=== PATIENT | male | born 1985 | race Caucasian/White ===

== ENCOUNTER 2019-09-12 17:25 | Inpatient (IN) | payer SELFPAY ==
--- OUTSIDE RECORDS SUMMARY | 2019-09-12 17:28 | XMS REPORT ---
:1985 Author Organization [facility] t Address [address] [place] [address] Care Team Providers Name Role Phone Unavailable Unavailable Unavailable Problems Condition Condition Condition Status Onset Resolution Last Treatin g Comments Name Details Category Date Date Treatment Clinician Date Loss of Loss of Problem Active libido libido Depression Depression Problem Active with with anxiety anxiety Body mass Body mass Problem Active index (BMI) index (BMI) of of 33.0-33.9 33.0-33.9 in adult in adult Non Non Diagnosis Active compliance compliance w w medication medication regimen regimen Localized Localized Problem Active pain of hip pain of hip joint joint Tobacco Tobacco Diagnosis Active abuse abuse counseling counseling Allergies, Adverse Reactions, Alerts This patient has no known allergies or adverse reactions. Medications Ordered Filled Start Stop Current Ordering Indication Dosage Frequency Signature Comments Components Medication Medication Date Date Medication? Clinician (SIG) Name Name Venlafaxine Venlafaxine 2018- Yes Theron 1 tabl et HCl HCl - Krunal with food 00:00: 00 Claritin-D Claritin-D Yes Theron 1 tablet 12 Hour 12 Hour Krunal as needed Duexis Duexis Yes Theron 1 tablet Krunal Encounters Start End Encounter Admission Attending Care Care Encounter Date/Time Date/Time Type Type Clinicians Facility Department ID 2018-09-08 2018-09-08 Outpatient [facility] 2 [id number] 08:15:00 08:15:00 [facility] Family Medicine Medicine
--- OUTSIDE RECORDS SUMMARY | 2019-09-12 17:28 | XMS REPORT ---
:1985 Author Organization [employer] Care Team Providers Name Role Phone Theron Hector Provider Role Unavailable Allergies, Adverse Reactions, Alerts Substance Reaction Event Type N.K.D.A. Info Not Available Non Drug Allergy Problems Problem Type Condition Code Onset Dates Condition Statu s Assessment Loss of libido R68.82 Active Assessment Depression with anxiety F41.8 Acti ve Assessment Body mass index (BMI) of 33.0-33.9 Z68.33 Active in adult Assessment Non compliance w medication regimen Z91.14 Active Problem Depression with anxiety F41.8 Acti ve Problem Localized pain of hip joint M25.559 Active Problem Tobacco abuse counseling Z71.6 Act maria t Assessment Tobacco abuse counseling Z71.6 Act maria t Problem Body mass index (BMI) of 33.0-33.9 Z68.33 Active in adult Problem Loss of libido R68.82 Active Medications Medication Code Code Instructions Start End Status Dosage System Date Date Venlafaxine HCl [facility] 63318903144 50 MG Orally November 08, Active 1 tablet Once a day 2017 with food Claritin-D 12 [facility] 50921261391 5-120 MG Orally Active 1 tablet Hour every 12 hrs as needed Duexis [facility] 86895662707 800-26.6 MG Active 1 tablet Orally Three times a day Results No Known Results Summary Purpose eClinicalWorks Submission
[2019-09-12 18:05] LABS: Basophils % 0.6 % (0-1.3); Hematocrit 44.7 % (39.6-49.0); Lymphocytes % 21.7 % (15.3-44.8); MPV 8.7 fL (7.6-11.3); RBC Red Blood Cell Count 4.87 M/uL (4.33-5.43)
[2019-09-12 18:11] LABS: Urine Blood NEGATIVE (NEG); Urine Glucose NEGATIVE (NEG); Urine Protein NEGATIVE (NEG); Urine Specific Gravity >1.030 (1.005-1.030)
[2019-09-12 18:24] LABS: ALT/SGPT 51 U/L (12-78); AST/SGOT 18 U/L (15-37); Alkaline Phosphatase 134 U/L (45-117); BUN Blood Urea Nitrogen 14 mg/dL (7-18); Bicarbonate 27 mmol/L (21-32); Bilirubin Direct < 0.1 mg/dL (0-0.2); Bilirubin Total 0.2 mg/dL (0.2-1.0); Glucose Level 90 mg/dL (74-106); Protein, Total 7.9 g/dL (6.4-8.2); Sodium Level 140 mmol/L (136-145)
--- NOTE | 2019-09-12 18:36 | RAD REPORT ---
EXAM DESCRIPTION: CT - Stone Protocol - 09/12/2019 6:12 pm CLINICAL HISTORY: Abdominal pain./right flank pain COMPARISON: None. TECHNIQUE: Computed axial tomography of the abdomen pelvis was obtained without oral or IV contrast. Lack of IV and oral contrast limits evaluation of solid organs, bowel, and vessels. Coronal reformat greg images were obtained and reviewed. All CT scans are performed using dose optimization technique as appropriate and may include automated exposure control or mA/KV adjustment according to patient size. FINDINGS: A renal calculus is not seen. An ureteral calculus is not noted. A bladder calculus is not present. The liver, spleen, pancreas and adrenals appear grossly normal Moderate stranding adjacent to the ascending colon. A small diverticulum is seen. An extraluminal air bubble is noted. No abscess IMPRESSION: Moderate diverticulitis ascending colon. A micro perforation is present.
[2019-09-12] MEDS ORDERED: CIPROFLOXACIN 400mg IV 400 MG/200 ML BAG IV ONE (19:10)
[2019-09-12] MEDS ORDERED: METRONIDAZOLE 500mg IVPB 500 MG/100 ML BAG IV ONE (19:11)
--- NOTE | 2019-09-12 19:23 | ER ---
Nurse's Notes [facility] Name: Andrade Herrmann Age: 34 yrs Sex: Male : 1985 Arrival Date: 09/12/2019 Time: 17:27 Bed 18 Private MD: Diagnosis: Diverticular disease of intestine;Diverticulitis of large intestine with perforation and abscess-With perforation but no abscess Presentation: 09/11 17:28 Method Of Arrival: Ambulatory sv 17:28 Chief complaint: Patient states: right flank pain started Tuesday. Report on Tuesday he sv was having epigastric burning and swelling. Coronavirus screen: Patient denies a cough. Patient denies shortness of breath or difficulty breathing. Patient denies measured and/or subjective temperature greater than 100.4F prior to today's visit. Patient denies travel on a cruise ship or to a country the [facility] currently lists as an affected area. Patient denies contact with known and/or suspected case of COVID-19. Ebola Screen: No symptoms or risks identified at this time. Risk Assessment: Do you want to hurt yourself or someone else? Patient reports no desire to harm self or others. Onset of symptoms was September 09, 2019. 17:28 Acuity: [place] 3 sv 17:28 Initial Sepsis Screen: Does the patient meet any 2 criteria? HR > 90 bpm. No. Patient's sv initial sepsis screen is negative. Does the patient have a suspected source of infection? Yes: Acute abdominal pain. Triage Assessment: 17:33 General: Appears in no apparent distress. uncomfortable, Behavior is calm, cooperative, sv appropriate for age. Pain: Complains of pain in anterior aspect of right lateral abdomen and posterior aspect of right lateral abdomen. Neuro: Level of Consciousness is awake, alert, obeys commands, Oriented to person, place, time, situation, Gait is steady. Respiratory: Respiratory effort is even, unlabored. GI: Reports upper abdominal pain, Patient currently denies constipation, diarrhea, nausea, vomiting. Historical: - Allergies: 17:31 No Known Allergies; sv - PMHx: 17:31 None; sv - PSHx: 17:31 Appendectomy; sv - Immunization history:: Flu vaccine is up to date. - Social history:: Smoking status: Patient reports the use of cigarette tobacco products, smokes one pack cigarettes per day. Screenin:40 Abuse screen: Denies threats or abuse. Denies injuries from another. Nutritional ca1 screening: No deficits noted. Tuberculosis screening: No symptoms or risk factors identified. Fall Risk None identified. Assessment: 17:40 General: Behavior is calm, appropriate for age. Pain: Complains of pain in anterior ca1 aspect of right lateral abdomen and posterior aspect of right lateral abdomen Pain does not radiate. Pain currently is 10 out of 10 on a pain scale. Pain began 2-3 days ago. Is intermittent. Neuro: Level of Consciousness is awake, alert, obeys commands, Oriented to person, place, time, situation. Cardiovascular: Heart tones S1 S2 present Capillary refill < 3 seconds Patient's skin is warm and dry. Respiratory: Airway is patent Respiratory effort is even, unlabored, Respiratory pattern is regular, symmetrical, Breath sounds are clear bilaterally. GI: Abdomen is flat, non-distended, Bowel sounds present X 4 quads. Abd is soft X 4 quads Abdomen is tender to palpation in anterior aspect of right lateral abdomen and posterior aspect of right lateral abdomen. : Urine is clear. : No signs and/or symptoms were reported regarding the genitourinary system. EENT: No signs and/or symptoms were reported regarding the EENT system. Derm: Skin is intact, is healthy with good turgor, Skin is pink, warm \T\ dry. Musculoskeletal: Circulation, motion, and sensation intact. Capillary refill < 3 seconds. 18:07 Reassessment: Pt to CT. ca1 18:40 Reassessment: Patient appears in no apparent distress at this time. Patient and/or ca1 family updated on plan of care and expected duration. Pain level reassessed. Patient is alert, oriented x 3, equal unlabored respirations, skin warm/dry/pink. 19:15 Reassessment: Patient appears in no apparent distress at this time. Patient and/or mg2 family updated on plan of care and expected duration. Pain level reassessed. Patient is alert, oriented x 3, equal unlabored respirations, skin warm/dry/pink. patient advised for admission. patient agreed about the plan. provider spoke to the patient. Vital Signs: 17:28 BP 147 / 85; Pulse 99; Resp 18; Temp 99(TE); Pulse Ox 97% ; Weight 90.72 kg; Height 5 sv ft. 5 in. (165.10 cm); 18:40 BP 117 / 95; Pulse 93; Resp 17 S; Pulse Ox 97% on R/A; ca1 19:17 BP 134 / 74; Pulse 89; Resp 18; Pulse Ox 98% on R/A; mg2 20:41 BP 128 / 62; Pulse 95; Resp 18; Temp 98.7; Pulse Ox 95% on R/A; mg2 17:28 Body Mass Index 33.28 (90.72 kg, 165.10 cm) sv ED Course: 17:27 Patient arrived in ED. ag5 17:28 Arm band placed on. sv 17:30 Triage completed. sv 17:35 Josephine Gaona RN is Primary Nurse. ca1 17:37 Emery Ramirez MD is Attending Physician. kdr 17:40 No provider procedures requiring assistance completed. ca1 17:43 Patient has correct armband on for positive identification. Bed in low position. Call ca1 light in reach. Side rails up X 1. Pulse ox on. NIBP on. 17:58 Initial lab(s) drawn, by me, sent to lab. Inserted saline lock: 20 gauge in right ca1 antecubital area, using aseptic technique. Blood collected. 18:12 CT Stone Protocol In Process Unspecified. EDMS 19:20 Astrid Black MD is Hospitalizing Provider. kdr 21:07 Patient admitted, IV remains in place. mg2 Administered Medications: 19:00 Drug: Flagyl 500 mg Volume: 100 ml; Route: IVPB; Rate: 200 ml/hr; Infused Over: 30 mg2 mins; Site: right antecubital; 19:15 Drug: Cipro 400 mg Volume: 200 ml; Route: IVPB; Infused Over: 60 mins; Site: right mg2 antecubital; 19:44 Drug: morphine 4 mg Route: IVP; Site: right antecubital; mg2 19:44 Drug: Zofran (Ondansetron) 4 mg Route: IVP; Site: right antecubital; mg2 Outcome: 19:22 Decision to Hospitalize by Provider. kdr 21:06 Admitted to Med/surg accompanied by nurse, via wheelchair, room 209, with chart, Report mg2 called to MAYUR Amador 21:06 Condition: stable 21:06 Instructed on the need for admit, Demonstrated understanding of instructions. 21:15 Patient left the ED. mg2 Signatures: Dispatcher [employer] EDMS Rob Méndezhanie, RN RN sv Emery Ramirez MD MD [facility] Yves Wilson RN RN [facility] Josephine Gaona RN RN [facility] Mechelle Wilcox 5 Corrections: (The following items were deleted from the chart) 17:33 17:28 90.72 kg; Height 5 ft. 5 in.; BMI: 33.2; sv sv 17:33 17:28 Pulse 99bpm; Resp 18bpm; Pulse Ox 97%; Temp 99F Temporal; 90.72 kg; Height 5 ft. sv 5 in.; BMI: 33.2; sv
--- NOTE | 2019-09-12 19:23 | EDPHYS ---
Physician Documentation [facility] Name: Andrade Herrmann Age: 34 yrs Sex: Male : 1985 Arrival Date: 09/12/2019 Time: 17:27 Bed 18 Private MD: ED Physician Emery Ramirez HPI: 09/11 18:05 This 34 yrs old Male presents to ER via Ambulatory with complaints of Side kdr Pain. 18:05 The patient presents with abdominal pain Focal Right Flank Pain. Onset: The kdr symptoms/episode began/occurred Tuesday. The symptoms do not radiate. Associated signs and symptoms: Pertinent positives: nausea and vomiting. The symptoms are described as achy, constant, sharp, stabbing. Modifying factors: The symptoms are alleviated by remaining still, the symptoms are aggravated by breathing deeply, movement, pressure, touching the area, walking. Historical: - Allergies: 17:31 No Known Allergies; sv - PMHx: 17:31 None; sv - PSHx: 17:31 Appendectomy; sv - Immunization history:: Flu vaccine is up to date. - Social history:: Smoking status: Patient reports the use of cigarette tobacco products, smokes one pack cigarettes per day. ROS: 18:05 Constitutional: Negative for fever, chills, and weight loss, Eyes: Negative for injury, kdr pain, redness, and discharge, ENT: Negative for injury, pain, and discharge, Neck: Negative for injury, pain, and swelling, Cardiovascular: Negative for chest pain, palpitations, and edema, Respiratory: Negative for shortness of breath, cough, wheezing, and pleuritic chest pain, Back: Negative for injury and pain, : Negative for injury, bleeding, discharge, and swelling, MS/Extremity: Negative for injury and deformity, Skin: Negative for injury, rash, and discoloration, Neuro: Negative for headache, weakness, numbness, tingling, and seizure activity. Psych: Negative for depression, anxiety, suicide ideation, homicidal ideation, and hallucinations, Allergy/Immunology: Negative for hives, rash, and allergies, Endocrine: Negative for neck swelling, polydipsia, polyuria, polyphagia, and marked weight changes, Hematologic/Lymphatic: Negative for swollen nodes, abnormal bleeding, and unusual bruising. 18:05 Abdomen/GI: Positive for abdominal pain, vomiting, of the anterior aspect of right lateral abdomen and posterior aspect of right lateral abdomen. Exam: 18:05 Constitutional: This is a well developed, well nourished patient who is awake, alert, kdr and in no acute distress. Head/Face: Normocephalic, atraumatic. Eyes: Pupils equal round and reactive to light, extra-ocular motions intact. Lids and lashes normal. Conjunctiva and sclera are non-icteric and not injected. Cornea within normal limits. Periorbital areas with no swelling, redness, or edema. Neck: Trachea midline, no thyromegaly or masses palpated, and no cervical lymphadenopathy. Supple, full range of motion without nuchal rigidity, or vertebral point tenderness. No Meningismus. Chest/axilla: Normal chest wall appearance and motion. Nontender with no deformity. No lesions are appreciated. Cardiovascular: Regular rate and rhythm with a normal S1 and S2. No gallops, murmurs, or rubs. Normal PMI, no JVD. No pulse deficits. Respiratory: Lungs have equal breath sounds bilaterally, clear to auscultation and percussion. No rales, rhonchi or wheezes noted. No increased work of breathing, no retractions or nasal flaring. Back: No spinal tenderness. No costovertebral tenderness. Full range of motion. Skin: Warm, dry with normal turgor. Normal color with no rashes, no lesions, and no evidence of cellulitis. MS/ Extremity: Pulses equal, no cyanosis. Neurovascular intact. Full, normal range of motion. Neuro: Awake and alert, GCS 15, oriented to person, place, time, and situation. Cranial nerves II-XII grossly intact. Motor strength 5/5 in all extremities. Sensory grossly intact. Cerebellar exam normal. Normal gait. Psych: Awake, alert, with orientation to person, place and time. Behavior, mood, and affect are within normal limits. Vital Signs: 17:28 BP 147 / 85; Pulse 99; Resp 18; Temp 99(TE); Pulse Ox 97% ; Weight 90.72 kg; Height 5 sv ft. 5 in. (165.10 cm); 18:40 BP 117 / 95; Pulse 93; Resp 17 S; Pulse Ox 97% on R/A; ca1 19:17 BP 134 / 74; Pulse 89; Resp 18; Pulse Ox 98% on R/A; mg2 20:41 BP 128 / 62; Pulse 95; Resp 18; Temp 98.7; Pulse Ox 95% on R/A; mg2 17:28 Body Mass Index 33.28 (90.72 kg, 165.10 cm) sv MDM: 18:05 Data reviewed: vital signs, nurses notes, lab test result(s), radiologic studies. kdr 19:22 Patient medically screened. kdr 09/11 17:49 Order name: Basic Metabolic Panel; Complete Time: 18:38 kdr 09/11 18:49 Interpretation: GFR 65. kdr 09/11 17:49 Order name: CBC with Diff; Complete Time: 18:38 kdr 09/11 17:49 Order name: Creatinine for Radiology; Complete Time: 18:38 kdr 09/11 17:49 Order name: Hepatic Function; Complete Time: 18:38 kdr 09/11 17:58 Order name: Urine Dipstick--Ancillary (enter results); Complete Time: 18:38 bd 09/11 20:05 Order name: CBC with Automated Diff EDMS 09/11 20:05 Order name: CBC with Automated Diff EDMS 09/11 20:05 Order name: Comprehensive Metabolic Panel EDMT 09/11 20:05 Order name: Comprehensive Metabolic Panel EDMS 09/11 20:05 Order name: Lactate EDMS 09/11 20:05 Order name: Lactate EDMS 09/11 20:05 Order name: Magnesium EDMS 09/11 20:05 Order name: Magnesium EDMS 09/11 20:05 Order name: Phosphorus EDMT 09/11 17:49 Order name: IV Saline Lock; Complete Time: 17:58 kdr 09/11 17:49 Order name: Labs collected and sent; Complete Time: 17:58 kdr 09/11 17:49 Order name: CT Stone Protocol; Complete Time: 18:54 kdr 09/11 17:49 Order name: Urine Dipstick-Ancillary (obtain specimen); Complete Time: 17:51 kdr 09/11 20:05 Order name: CONS Physician Consult EDMT 09/11 20:05 Order name: NPO EDMS 09/11 20:05 Order name: Phosphorus EDMS 09/11 20:05 Order name: Procalcitonin EDMT 09/11 20:05 Order name: Procalcitonin EDMT Administered Medications: 19:00 Drug: Flagyl 500 mg Volume: 100 ml; Route: IVPB; Rate: 200 ml/hr; Infused Over: 30 mg2 mins; Site: right antecubital; 19:15 Drug: Cipro 400 mg Volume: 200 ml; Route: IVPB; Infused Over: 60 mins; Site: right mg2 antecubital; 19:44 Drug: morphine 4 mg Route: IVP; Site: right antecubital; mg2 19:44 Drug: Zofran (Ondansetron) 4 mg Route: IVP; Site: right antecubital; mg2 Disposition: 09/12/19 19:22 Hospitalization ordered by Astrid Black for Inpatient Admission. Preliminary diagnosis are Diverticular disease of intestine, Diverticulitis of large intestine with perforation and abscess - With perforation but no abscess. - Bed requested for Telemetry/MedSurg (Inpatient). - Status is Inpatient Admission. mg2 - Condition is Fair. - Problem is new. - Symptoms are unchanged. Signatures: Dispatcher [employer] Gin Cabrera RN RN Emery Ramirez MD MD [facility] Yves Wilson RN RN [facility] Louisa Mata ar5 Corrections: (The following items were deleted from the chart) 20:33 19:22 Hospitalization Ordered by Astrid Black MD for Inpatient Admission. Preliminary ar5 diagnosis is Diverticular disease of intestine; Diverticulitis of large intestine with perforation and abscess - With perforation but no abscess. Bed requested for Telemetry/MedSurg (Inpatient). Status is Inpatient Admission. Condition is Fair. Problem is new. Symptoms are unchanged. kdr 21:15 20:33 09/12/2019 19:22 Hospitalization Ordered by Astrid Black MD for Inpatient mg2 Admission. Preliminary diagnosis is Diverticular disease of intestine; Diverticulitis of large intestine with perforation and abscess - With perforation but no abscess. Bed requested for Telemetry/MedSurg (Inpatient). Status is Inpatient Admission. Condition is Fair. Problem is new. Symptoms are unchanged. ar5
[2019-09-12] MEDS ORDERED: MORPHINE 4 MG/ML SYR ONE (19:41)
[2019-09-12] MEDS ORDERED: ONDANSETRON 4 MG/2 ML VIAL ONE (19:41)
[2019-09-12] MEDS ORDERED: ACETAMINOPHEN 500 MG TAB PO PRN (20:00)
[2019-09-12] MEDS ORDERED: ALPRAZOLAM 0.25 MG TABLET PO PRN (20:00)
[2019-09-12] MEDS: NA CHLORIDE 0.9% 1,000 ML IV SCH (20:00)
[2019-09-12] MEDS ORDERED: MORPHINE 4 MG/ML SYR IV PRN (20:00)
[2019-09-12] MEDS ORDERED: ONDANSETRON 4 MG/2 ML VIAL IV PRN (20:00)
[2019-09-12 21:27] VITALS: O2SAT 95
[2019-09-12 21:50] VITALS: BMI 34.0
[2019-09-12] MEDS: FENTANYL CITR 100 MCG/2 ML IV PRN (22:45)
[2019-09-13] MEDS: METRONIDAZOLE 500mg IVPB 500 MG/100 ML BAG IV SCH ×5 (00:03→23:28)
[2019-09-13] MEDS: FENTANYL CITR 100 MCG/2 ML IV PRN ×2 (04:07→15:02)
[2019-09-13 04:31] LABS: Absolute Lymphocytes (CBC) 3.7 K/uL (0.7-4.9); Basophils % 0.7 % (0-1.3); Hematocrit 41.8 % (39.6-49.0); Lymphocytes % 29.7 % (15.3-44.8); MPV 8.8 fL (7.6-11.3); RBC Red Blood Cell Count 4.52 M/uL (4.33-5.43)
[2019-09-13 05:09] LABS: Albumin 3.3 g/dL (3.4-5.0); Bilirubin Total 0.5 mg/dL (0.2-1.0); Magnesium 2.3 mg/dL (1.8-2.4); Phosphorus 3.4 mg/dL (2.5-4.9); Potassium 4.4 mmol/L (3.5-5.1); Protein, Total 6.9 g/dL (6.4-8.2)
[2019-09-13] MEDS: Levofloxacin500mg IV 500 MG/100 ML BAG IV SCH (06:01)
[2019-09-13] MEDS: NA CHLORIDE 0.9% 1,000 ML IV SCH ×3 (06:01→20:02)
--- NOTE | 2019-09-13 07:13 | P.HP ---
Certification for Inpatient Patient admitted to: Inpatient With expected LOS: >2 Midnights Patient will require the following post-hospital care: None Practitioner: I am a practitioner with admitting privileges, knowledge of patient current condition, hospital course, and medical plan of care. Services: Services provided to patient in accordance with Admission requirements found in Title 42 Section 412.3 of the Code of Federal Regulations Patient History Date of Service: 09/12/19 Reason for admission: Right flank tenderness and abdominal pain History of Present Illness: Patient is a 34-year-old gentleman who came to the hospital with abdominal discomfort. Patient has pain in the right flank region since Tuesday and has been getting progressively worse. Patient had taken a laxative. This did not give him any relief. Patient came to the ER for further evaluation. In the emergency room, patient had a CT scan of the abdomen which revealed an ascending diverticulitis with microperforation. Patient will be admitted to the hospital for further evaluation. Will continue with IV antibiotic therapy. Patient need outpatient colonoscopy. Will keep him NPO until patient is seen by General surgery. Allergies No Known Allergies Allergy (Verified 09/12/19 21:48) Home Medications: NK [No Home Meds] 09/12/19 - Past Medical/Surgical History Has patient received pneumonia vaccine in the past: No Diabetic: No Past Medical History: Patient denies medical history -: Appendectomy - Family History Father Family History: Reviewed- Non-Contributory - Social History Smoking Status: Current some day smoker Alcohol use: No CD- Drugs: No Caffeine use: No Place of Residence: Home Review of Systems 10-point ROS is otherwise unremarkable Physical Examination - Vital Signs Temperature: 98.0 F Blood Pressure: 117/56 Pulse: 63 Respirations: 14 Pulse Ox (%): 92 - Physical Exam General: Alert, In no apparent distress, Oriented x3 HEENT: Atraumatic, PERRLA, Mucous membr. moist/pink, EOMI, Sclerae nonicteric Neck: Supple, 2+ carotid pulse no bruit, No LAD, Without JVD or thyroid abnormality Respiratory: Clear to auscultation bilaterally, Normal air movement Cardiovascular: Regular rate/rhythm, Normal S1 S2, No murmurs Gastrointestinal: Normal bowel sounds, Soft and benign, Non-distended, No tenderness, No rebound, No guarding Musculoskeletal: No clubbing, No swelling, No tenderness Integumentary: No rashes Neurological: Normal gait, Normal speech, Normal strength at 5/5 x4 extr, Normal tone, Sensation intact, Cranial nerves 3-12 intact, Normal affect Lymphatics: No axilla or inguinal lymphadenopathy - Studies Laboratory Data (last 24 hrs) 09/12/19 17:56: Creatinine 1.17 09/12/19 17:56: WBC 18.4 H, Hgb 14.8, Hct 44.7, Plt Count 270 09/12/19 17:56: Sodium 140, Potassium 4.0, BUN 14, Creatinine 1.27, Glucose 90, Total Bilirubin 0.2, AST 18, ALT 51, Alkaline Phosphatase 134 H Assessment & Plan - Problems (Diagnosis) (1) Diverticulitis of large intestine with perforation and abscess Current Visit: Yes Status: Acute - Plan 1. Continue with IV hydration 2. Continue with IV antibiotics 3. Continue with pain control 4. NPO 5. GI & general surgery consultation; outpatient colonoscopy in 6-12 weeks 6. Serial H&H, and we will monitor CBC, BMP, LFTs and lipase along with electrolytes. 7. GI and DVT prophylaxis Discharge Plan: Home Plan to discharge in: Greater than 2 days - Advance Directives Does patient have a Living Will: No Does patient have a Durable POA for Healthcare: No - Code Status/Comfort Care Code Status Assessed: Yes Code Status: Full Code Critical Care: No Time Spent Managing PTS Care (In Minutes): 45
[2019-09-13 08:30] LABS: Urine Appearance CLEAR; Urine Bilirubin NEGATIVE (NEG); Urine Blood NEGATIVE (NEG); Urine Color DK YELLOW; Urine Glucose NEGATIVE (NEG); Urine Protein NEGATIVE (NEG); Urine Specific Gravity >=1.030 (1.005-1.030); Urine Urobilinogen 0.2 mg/dL (0.2-1.0); Urine pH 5.5 (5.0-7.0)
[2019-09-13 08:39] LABS: Urine Microscopic Reflex NO UMIC
[2019-09-13] MEDS ORDERED: NICOTINE 21 MG/PAT TD SCH (09:00)
[2019-09-13] MEDS ORDERED: ENOXAPARIN 40 MG/0.4 ML SQ SCH (09:00)
--- NOTE | 2019-09-13 09:11 | P.PN ---
Subjective Date of Service: 09/13/19 Chief Complaint: Right flank tenderness and abdominal pain Subjective: Other (Patient still with pain to the right quadrant. No significant nausea vomiting. No passage of gas or stool.) Physical Examination - Vital Signs Temperature: 98.0 F Blood Pressure: 117/56 Pulse: 63 Respirations: 14 Pulse Ox (%): 92 - Physical Exam General: Alert, In no apparent distress, Oriented x3, Cooperative HEENT: Atraumatic Neck: Supple Respiratory: Clear to auscultation bilaterally, Normal air movement Cardiovascular: Normal pulses, Regular rate/rhythm Gastrointestinal: Hypoactive, Soft and benign, Tenderness (Some tenderness to the right quadrant with palpation) Integumentary: No tenderness/swelling, No erythema, No warmth, No cyanosis Neurological: Normal speech, Normal strength at 5/5 x4 extr, Normal tone, Normal affect - Studies Laboratory Data (last 24 hrs) 09/12/19 17:56: Creatinine 1.17 09/12/19 17:56: WBC 18.4 H, Hgb 14.8, Hct 44.7, Plt Count 270 09/12/19 17:56: Sodium 140, Potassium 4.0, BUN 14, Creatinine 1.27, Glucose 90, Total Bilirubin 0.2, AST 18, ALT 51, Alkaline Phosphatase 134 H Medications List Reviewed: Yes Assessment & Plan Discharge Plan: Home Plan to discharge in: 72 Hours Physician Review Additional Text: Impression: Right abdominal pain secondary to ascending diverticulitis with micro perforation Tobacco abuse Plan: Right abdominal pain secondary to ascending diverticulitis with micro pe rforation: Continue IV antibiotic therapy, medication for pain and nausea. Continue IV fluids. Will keep the patient NPO. Will discuss further with surgery. Anticipate improvement over the next 2-5 days. Will likely start clears later today or tomorrow. Encourage ambulation. Will provide incentive spirometer. Will monitor closely. DVT prophylaxis in place. Tobacco abuse: Will provide nicotine patch. Time Spent Managing Pts Care (In Minutes): 55
--- NOTE | 2019-09-13 13:24 | P.CNS ---
Date of Consult: 09/13/19 PC: This 34-year-old male presents emergency room with severe abdominal pain for diagnosis and treatment. HPC: Patient is noticed he has had a right-sided abdominal pain, almost in his back, for the last 4 days. Pain has become more severe. Started feeling unwell last night and came to the ER. 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 This morning it is 12. CT scan demonstrates a micro perforations of diverticular disease on the right ascending colon IMPRESSION: Perforated diverticular disease without peritoneal contamination PLAN: Patient has been admitted, he will be kept on clear liquids. His pain is controlled. He is on IV antibiotics. I anticipate that in the next 24 hr, as he continues to show a response, he may be a suitable for discharge and outpatient treatment. It was emphasized to him that he will need a colonoscopy in approximately 4-6 weeks. He does not require surgical intervention at this time. There is no evidence of any abscess.
[2019-09-14 05:29] LABS: Absolute Lymphocytes (CBC) 2.8 K/uL (0.7-4.9); Basophils % 0.8 % (0-1.3); Hematocrit 41.3 % (39.6-49.0); Lymphocytes % 26.8 % (15.3-44.8); MPV 8.6 fL (7.6-11.3); RBC Red Blood Cell Count 4.45 M/uL (4.33-5.43)
[2019-09-14 05:42] LABS: Magnesium 2.3 mg/dL (1.8-2.4)
[2019-09-14] MEDS: Levofloxacin500mg IV 500 MG/100 ML BAG IV SCH (06:04)
[2019-09-14] MEDS: METRONIDAZOLE 500mg IVPB 500 MG/100 ML BAG IV SCH (06:04)
--- NOTE | 2019-09-14 08:42 | P.DS ---
Admission Date: 09/12/19 Discharge Date: 09/14/19 Primary Care Provider: none Disposition: ROUTINE DISCHARGE Discharge Condition: GOOD Reason for Admission: Right flank tenderness and abdominal pain Consultations: Surgery: Dr. Umaña Procedures: CT Scan: FINDINGS: A renal calculus is not seen. An ureteral calculus is not noted. A bladder calculus is not present. The liver, spleen, pancreas and adrenals appear grossly normal Moderate stranding adjacent to the ascending colon. A small diverticulum is seen. An extraluminal air bubble is noted. No abscess IMPRESSION: Moderate diverticulitis ascending colon. A micro perforation is present. Medical Problem List: Right abdominal pain secondary to ascending diverticulitis with micro perforation Tobacco abuse Brief History of Present Illness: 34-year-old male presented to the emergency room with right quadrant abdominal pain. Patient found to have ascending diverticulitis with micro perforation. No abscess noted. Patient admitted for treatment. Hospital Course: Patient admitted for right abdominal pain secondary to ascending diverticulitis with micro perforation. No abscess noted. Patient received IV antibiotic therapy, pain control and IV fluids. Patient was seen and evaluated by surgery. No surgical intervention was required. His diet was advanced. At discharge he is without significant abdominal pain. He has had bowel movement without any problems. At discharge patient will continue with Cipro for 500 mg twice daily and Flagyl 500 mg 3 times a day for 10 days. Recommendation is for the patient to follow up with GI in 2-4 weeks. Patient will require colonoscopy in 4-6 weeks to further evaluate. If his symptoms persist or get worse he will need to return to the hospital for further evaluation. Patient may return to work on Tuesday. Patient will be educated on a diverticulitis. Patient will be provided a diverticular diet. Patient with history of tobacco abuse. Tobacco cessation addressed. Will provide nicotine patch. Vital Signs/Physical Exam: Temp Pulse Resp BP Pulse Ox 98.0 F 67 14 122/66 97 09/14/19 04:00 09/14/19 04:00 09/14/19 04:00 09/14/19 04:00 09/14/19 04:00 General: Alert, In no apparent distress, Oriented x3, Cooperative HEENT: Atraumatic Neck: Supple Respiratory: Clear to auscultation bilaterally, Normal air movement Cardiovascular: Normal pulses, Regular rate/rhythm Gastrointestinal: Normal bowel sounds, Soft and benign, Non-distended, No masses, No rebound, No guarding Musculoskeletal: No erythema, No tenderness, No warmth Integumentary: No tenderness/swelling, No erythema, No warmth, No cyanosis Neurological: Normal speech, Normal strength at 5/5 x4 extr, Normal tone, Normal affect Laboratory Data at Discharge: WBC 10.3 K/uL (4.3-10.9) D 09/14/19 04:51 Hgb 13.6 g/dL (13.6-17.9) 09/14/19 04:51 Hct 41.3 % (39.6-49.0) 09/14/19 04:51 Plt Count 254 K/uL (152-406) 09/14/19 04:51 Sodium 141 mmol/L (136-145) 09/14/19 04:51 Potassium 4.0 mmol/L (3.5-5.1) 09/14/19 04:51 BUN 14 mg/dL (7-18) 09/14/19 04:51 Creatinine 1.01 mg/dL (0.55-1.3) 09/14/19 04:51 Glucose 96 mg/dL (74-106) 09/14/19 04:51 Phosphorus 3.4 mg/dL (2.5-4.9) 09/13/19 04:01 Magnesium 2.3 mg/dL (1.8-2.4) 09/14/19 04:51 Total Bilirubin 0.5 mg/dL (0.2-1.0) 09/13/19 04:01 AST 15 U/L (15-37) 09/13/19 04:01 ALT 43 U/L (12-78) 09/13/19 04:01 Alkaline Phosphatase 127 U/L (45-117) H 09/13/19 04:01 Home Medications: Ciprofloxacin HCl [Cipro 500 MG Tablet] 500 mg PO BID #20 tab 09/14/19 Nicotine [Nicoderm*] 21 mg TD DAILY #30 patch.td24 09/14/19 metroNIDAZOLE [Flagyl] 500 mg PO Q8H #30 tablet 09/14/19 New Medications: Ciprofloxacin HCl [Cipro 500 MG Tablet] 500 mg PO BID #20 tab metroNIDAZOLE [Flagyl] 500 mg PO Q8H #30 tablet Nicotine [Nicoderm*] 21 mg TD DAILY #30 patch.td24 Patient Discharge Instructions: 1. Patient will establish care and follow up this hospitalization with a PCP within 1-2 weeks. 2. Patient admitted for right abdominal pain secondary to ascending diverticulitis with micro perforation. No abscess noted. Patient received IV antibiotic therapy, pain control and IV fluids. Patient was seen and evaluated by surgery. No surgical intervention was required. His diet was advanced. At discharge he is without significant abdominal pain. He has had bowel movement without any problems. At discharge patient will continue with Cipro for 500 mg twice daily and Flagyl 500 mg 3 times a day for 10 days. Recommendation is for the patient to follow up with GI in 2-4 weeks. Patient will require colonoscopy in 4-6 weeks to further evaluate. If his symptoms persist or get worse he will need to return to the hospital for further evaluation. Patient may return to work on Tuesday. Patient will be educated on a diverticulitis. Patient will be provided a diverticular diet. 3. Patient with history of tobacco abuse. Tobacco cessation addressed. Will provide nicotine patch. Diet: diverticular diet Activity: Ad artem Time spent managing pt's care (in minutes): 55
[2019-09-14 09:40] VITALS: BP 128/58; TEMP 97.8
== END 2019-09-14 09:20 | disposition home or self-care (01) | DRG 392 ==
LOC: ER 17:25 → ERHOLD 20:41 → 2ND 21:04
PROVIDERS: ADMIT Hospitalist; ATTEND Family Medicine
DX: K57.20 Diverticulitis of large intestine with perforation and abscess without bleeding (principal); F17.200 Nicotine dependence, unspecified, uncomplicated; Z79.899 Other long term (current) drug therapy; Z90.49 Acquired absence of other specified parts of digestive tract
CPT/HCPCS: 36415; 74176; 76377; 80048; 80053; 80076; 81003; 83605; 83735; 84100; 84145; 85025; 96374; 96375; 99285; J0744; J1650; J2405; J3010; J7030

== ENCOUNTER 2020-09-25 16:25 | Emergency (ER) | payer SELFPAY ==
--- OUTSIDE RECORDS SUMMARY | 2020-09-25 16:27 | XMS REPORT | Continuity of Care Document ---
:1985 Author Organization [facility] Address [address] [place] [address] Care Team Providers Name Role Phone Unavailable Unavailable Unavailable Problems Condition Condition Condition Status Onset Resolution Last Treating Co mments Source Name Details Category Date Date Treatment Clinician Date Non Non Diagnosis Active [facility] compliance compliance Leni kes - w w Memoria medication medication l regimen regimen [facility] ent [facility] Localized Localized Problem Active [facility] pain of pain of [facility] - hip joint hip joint Bipin beba l [facility] Tobacco Tobacco Diagnosis Active [facility] abuse abuse [facility] - counseling counseling Me moria l [facility] Loss of Loss of Problem Active [facility] libido libido [facility] - [facility] Depression Depression Problem Active [facility] with with [facility] - anxiety anxiety Memoria [facility] ent Clinics Body mass Body mass Problem Active [facility] index index [facility] - (BMI) of (BMI) of Memori a 33.0-33.9 33.0-33.9 l in adult in adult Outprt i ent Clinics Allergies, Adverse Reactions, Alerts This patient has no known allergies or adverse reactions. Medications Ordered Filled Start Stop Current Ordering Indication Dosage Frequency Signature Comments Components Source Medication Medication Date Date Medication? Clinician (SIG) Name Name Venlafaxine Venlafaxine 2018- Yes Theron [address] [facility] HCl HCl 6-19 Krunal with food [facility] - 00:00: [facility] Claritin-D Claritin-D Yes Theron [address] [facility] 12 Hour 12 Hour Krunal as needed Onofre es - Memoria [facility] ent Clinics Duexis Duexis Yes Theron 1 tablet [facility] Krunal [facility] - [facility] ent Clinics Procedures This patient has no known procedures. Encounters Start End Encounter Admission Attending Care Care Encounter Source Date/Time Date/Time Type Type Clinicians Facility Department ID 2018-09-08 2018-09-08 [facility] [id number] [facility] 08:15:00 08:15:00 [facility] Family Medicine Medicine Outpati ent Clinics Results This patient has no known results.
[2020-09-25 18:07] LABS: Absolute Lymphocytes (CBC) 3.2 K/uL (0.7-4.9); Basophils % 0.6 % (0-1.3); Hematocrit 43.8 % (39.6-49.0); Lymphocytes % 31.4 % (15.3-44.8); RBC Red Blood Cell Count 4.83 M/uL (4.33-5.43)
[2020-09-25 18:15] LABS: Urine Blood Negative (Negative); Urine Glucose Negative (Negative); Urine Protein Negative (Negative); Urine Specific Gravity >=1.030 (1.005-1.030); Urine pH 5.5 (5.0-7.0)
[2020-09-25] MEDS ORDERED: NA CHLORIDE 0.9% 1,000 ML ONE (18:17)
[2020-09-25] MEDS ORDERED: KETOROLAC 30 MG/ML INJ ONE (18:17)
[2020-09-25 18:36] LABS: ALT/SGPT 44 U/L (12-78); AST/SGOT 17 U/L (15-37); Alkaline Phosphatase 117 U/L (45-117); BUN Blood Urea Nitrogen 19 mg/dL (7-18); Bicarbonate 27 mmol/L (21-32); Bilirubin Direct < 0.1 mg/dL (0-0.2); Bilirubin Total 0.2 mg/dL (0.2-1.0); Glucose Level 102 mg/dL (74-106); Lipase 91 U/L (73-393); Potassium 3.9 mmol/L (3.5-5.1); Protein, Total 7.3 g/dL (6.4-8.2); Sodium Level 142 mmol/L (136-145)
[2020-09-25 19:18] LABS: Urine Bacteria NONE SEEN /HPF (NONE SEEN); Urine RBC NONE SEEN /HPF (NONE SEEN)
[2020-09-25 19:19] LABS: Calcium Oxalate Crystals- Ur MODERATE (NONE SEEN)
--- NOTE | 2020-09-25 19:26 | RAD REPORT ---
EXAM DESCRIPTION: CT - Abdomen Pelvis W Contrast - 09/25/2020 6:50 pm CLINICAL HISTORY: Abdominal pain COMPARISON: 2019 TECHNIQUE: Computed axial tomography of the abdomen pelvis was obtained. 100 cc Isovue-300 was admin istered intravenously. Oral contrast was not requested which limits evaluation of bowel. All CT scans are performed using dose optimization technique as appropriate and may include automated exposure control or mA/KV adjustment according to patient size. FINDINGS: The liver, pancreas, adrenal and kidneys appear unremarkable. Splenic granulomas There is no evidence of diverticulitis. No ascites IMPRESSION: No acute abnormality is displayed.
--- NOTE | 2020-09-25 20:08 | EDPHYS ---
Physician Documentation [facility] Name: Andrade Herrmann Age: 35 yrs Sex: Male : 1985 Arrival Date: 09/25/2020 Time: 16:29 Bed 18 Private MD: ED Physician Vijay Asif HPI: 09/25 17:43 This 35 yrs old Male presents to ER via Ambulatory with complaints of cp Abdominal Pain. 17:43 The patient presents with abdominal pain right flank area. Onset: The symptoms/episode cp began/occurred 4 day(s) ago. The symptoms do not radiate. Associated signs and symptoms: Pertinent positives: constipation, Pertinent negatives: diarrhea, dysuria, fever, shortness of breath, testicular pain, vomiting. The symptoms are described as pressure. Modifying factors: the symptoms are aggravated by nothing. Severity of pain: in the emergency department the pain has improved moderately. 17:43 . Patient reports concern that pain may be due to diverticulitis. Patient reports cp history od diverticulitis in past with micro perforation. Pain has been similar but not as intense and/or persistent. Historical: - Allergies: 16:45 No Known Allergies; ca1 - Home Meds: 16:45 None [Active]; ca1 - PMHx: 16:45 Diverticulitis; ca1 - PSHx: 16:45 Appendectomy; ca1 - Immunization history:: Client reports having NOT received the Covid vaccine. Flu vaccine is not up to date. - Social history:: Smoking status: Patient reports the use of cigarette tobacco products, smokes two packs cigarettes per day. ROS: 17:50 Constitutional: Negative for body aches, chills, fever, poor PO intake. cp 17:50 Eyes: Negative for injury, pain, redness, and discharge. cp 17:50 ENT: Negative for ear pain, sore throat, difficulty swallowing, difficulty handling secretions. 17:50 Cardiovascular: Negative for chest pain, palpitations. 17:50 Respiratory: Negative for cough, shortness of breath, wheezing. 17:50 Abdomen/GI: Positive for abdominal pain, of the anterior aspect of right lateral abdomen and posterior aspect of right lateral abdomen, Negative for vomiting, diarrhea, constipation. 17:50 : Negative for urinary symptoms, testicular pain 17:50 Neuro: Negative for altered mental status, headache, weakness. 17:50 All other systems are negative. Exam: 17:55 Constitutional: The patient appears in no acute distress, alert, awake, cp non-diaphoretic, non-toxic, well developed, well nourished. 17:55 Head/Face: Normocephalic, atraumatic. cp 17:55 Eyes: Periorbital structures: appear normal, Conjunctiva: normal, no exudate, no injection, Sclera: no appreciated abnormality, Lids and lashes: appear normal, bilaterally. 17:55 ENT: External ear(s): are unremarkable, Nose: is normal, Mouth: Lips: moist, Oral mucosa: moist, Posterior pharynx: Airway: no evidence of obstruction, patent. 17:55 Neck: ROM/movement: is normal, is supple, without pain, no range of motions limitations. 17:55 Chest/axilla: Inspection: normal, Palpation: is normal, no crepitus, no tenderness. 17:55 Cardiovascular: Rate: normal, Rhythm: regular. 17:55 Respiratory: the patient does not display signs of respiratory distress, Respirations: normal, no use of accessory muscles, no retractions, labored breathing, is not present, Breath sounds: are clear throughout, no decreased breath sounds, no stridor, no wheezing. 17:55 Abdomen/GI: Inspection: abdomen appears normal, Bowel sounds: active, all quadrants, Palpation: soft, in all quadrants, mild abdominal tenderness, in the anterior aspect of right lateral abdomen and posterior aspect of right lateral abdomen, rebound tenderness, is not appreciated, voluntary guarding, is not appreciated, involuntary guarding, is not appreciated. 17:55 Back: CVA tenderness, is absent. 17:55 Skin: no rash present. Vital Signs: 16:42 BP 119 / 75; Pulse 79; Resp 18 S; Temp 98.2(O); Pulse Ox 98% on R/A; Weight 85.73 kg ca1 (R); Height 5 ft. 5 in. (165.10 cm) (R); Pain 2/10; 17:34 BP 120 / 76; Pulse 75; Resp 18; Pulse Ox 96% ; tr6 20:00 BP 122 / 68; Pulse 78; Resp 18; Pulse Ox 99% ; ea 16:42 Body Mass Index 31.45 (85.73 kg, 165.10 cm) ca1 MDM: 17:29 Patient medically screened. cp 18:00 Differential diagnosis: cholecystitis, Cholelithiasis, diverticulitis, pancreatitis, cp Peptic Ulcer Disease, Perf. Duodenal Ulcer, Perf. Gastric Ulcer, Ureterolithiasis, urinary tract infection. 20:05 Data reviewed: vital signs, nurses notes, lab test result(s), radiologic studies, CT cp scan, and as a result, I will discharge patient. 20:05 Counseling: I had a detailed discussion with the patient and/or guardian regarding: the cp historical points, exam findings, and any diagnostic results supporting the discharge/admit diagnosis, lab results, radiology results, the need for outpatient follow up, a site supervisor, to return to the emergency department if symptoms worsen or persist or if there are any questions or concerns that arise at home. Response to treatment: the patient's symptoms have markedly improved after treatment. ED course: VSS. Patient declined having US to check gallbladder at this time and will return to ED worsening symptoms. 09/25 17:29 Order name: Basic Metabolic Panel; Complete Time: 19:19 cp 09/25 19:20 Interpretation: Normal except: CL 110; BUN 19; GFR 81. cp 09/25 17:29 Order name: CBC with Diff; Complete Time: 19:19 cp 09/25 19:20 Interpretation: Reviewed. cp 09/25 17:29 Order name: Hepatic Function; Complete Time: 19:20 cp 09/25 17:29 Order name: Lipase; Complete Time: 19:20 cp 09/25 17:43 Order name: Urine Microscopic Only; Complete Time: 19:34 cp 09/25 18:15 Order name: Urine Dipstick-Ancillary; Complete Time: 19:20 EDGA 09/25 17:29 Order name: IV Saline Lock; Complete Time: 17:42 cp 09/25 17:29 Order name: Labs collected and sent; Complete Time: 17:42 cp 09/25 17:43 Order name: CT Abd/Pelvis - IV Contrast Only; Complete Time: 19:34 cp 09/25 17:43 Order name: Urine Dipstick-Ancillary (obtain specimen); Complete Time: 18:37 cp Administered Medications: 18:08 Drug: TORadol - (ketorolac) 15 mg Route: IVP; Site: right antecubital; tr6 18:27 Follow up: Response: No adverse reaction; Pain is decreased tr6 18:08 Not Given (Patient Refused): NS 0.9% 1000 ml IV at 1 bolus Per protocol; 1000 mL bolus tr6 18:29 Drug: NS 0.9% 1000 ml Route: IV; Rate: 1 bolus; Site: right antecubital; tr6 Disposition: 09/26 07:26 Co-signature as Attending Physician, Vijay Asif MD I agree with the assessment and myla plan of care. Disposition: 09/25/20 20:08 Discharged to Home. Impression: Unspecified abdominal pain. - Condition is Stable. - Discharge Instructions: Abdominal Pain, Adult. - Prescriptions for Bentyl 20 mg Oral Tablet - take 2 tablets by ORAL route every 6 hours As needed; 30 tablet. - Medication Reconciliation Form, Thank You Letter, Antibiotic Education, Prescription Opioid Use form. - Follow up: Ricardo Wolfe MD; When: 1 - 2 days; Reason: Recheck today's complaints. Signatures: Dispatcher [employer] EDVijay Garcia MD MD cha Page, Corey, PA PA cp Olinda Alexander RN MAYUR ea Acob, Josephine RN Susie Costa RN RN tr6 Corrections: (The following items were deleted from the chart) 09/25 20:14 20:08 09/25/2020 20:08 Discharged to Home. Impression: Unspecified abdominal pain. ea Condition is Stable. Forms are Medication Reconciliation Form, Thank You Letter, Antibiotic Education, Prescription Opioid Use. Follow up: Ricardo Wolfe; When: 1 - 2 days; Reason: Recheck today's complaints. cp
--- NOTE | 2020-09-25 20:08 | ER ---
Nurse's Notes [facility] Name: Andrade Herrmann Age: 35 yrs Sex: Male : 1985 Arrival Date: 09/25/2020 Time: 16:29 Bed 18 Private MD: Diagnosis: Unspecified abdominal pain Presentation: 09/25 16:42 Chief complaint: Patient states: HX of diverticulitis. Been having pain on my R side, ca1 tender to the touch 3 - 4 days. And I have not been having normal BM x 3 - 4 days, been having alternate diarrhea and constipation. Coronavirus screen: Client denies travel out of the [place] in the last 14 days. diarrhea, Client presents with at least one sign or symptom that may indicate coronavirus-19. Standard/surgical mask placed on the client. Provider contacted for isolation considerations. Ebola Screen: Patient negative for fever greater than or equal to 101.5 degrees Fahrenheit, and additional compatible Ebola Virus Disease symptoms Patient denies exposure to infectious person. Patient denies travel to an Ebola-affected area in the 21 days before illness onset. No symptoms or risks identified at this time. Initial Sepsis Screen: Does the patient meet any 2 criteria? No. Patient's initial sepsis screen is negative. Does the patient have a suspected source of infection? No. Patient's initial sepsis screen is negative. Risk Assessment: Do you want to hurt yourself or someone else? Patient reports no desire to harm self or others. Onset of symptoms was September 25, 2020. 16:42 Method Of Arrival: Ambulatory ca1 16:42 Acuity: [place] 3 ca1 Historical: - Allergies: 16:45 No Known Allergies; ca1 - Home Meds: 16:45 None [Active]; ca1 - PMHx: 16:45 Diverticulitis; ca1 - PSHx: 16:45 Appendectomy; ca1 - Immunization history:: Client reports having NOT received the Covid vaccine. Flu vaccine is not up to date. - Social history:: Smoking status: Patient reports the use of cigarette tobacco products, smokes two packs cigarettes per day. Screenin:42 Abuse screen: Denies threats or abuse. Denies injuries from another. Nutritional tr6 screening: No deficits noted. Tuberculosis screening: No symptoms or risk factors identified. Fall Risk None identified. Assessment: 17:34 General: Appears in no apparent distress. Behavior is calm, cooperative, appropriate tr6 for age. Pain: Complains of pain in RLQ. Neuro: No deficits noted. Cardiovascular: No deficits noted. Respiratory: No deficits noted. GI: Bowel sounds present in epigastric area, umbilical area, suprapubic area, right upper quadrant, left upper quadrant and left lower quadrant hypoactive in RLQ Abdomen is tender to palpation RLQ tenderness. : No deficits noted. EENT: No deficits noted. Derm: No deficits noted. Musculoskeletal: No deficits noted. 19:36 Reassessment: Patient and/or family updated on plan of care and expected duration. Pain ea level reassessed. Patient is alert, oriented x 3, equal unlabored respirations, skin warm/dry/pink. 20:12 Reassessment: Patient and/or family updated on plan of care and expected duration. Pain ea level reassessed. Patient is alert, oriented x 3, equal unlabored respirations, skin warm/dry/pink. Discharge instruction given to patient verbalized the understanding of instruction. Pt left ED ambulatory accompanied by family, tolerating well. Vital Signs: 16:42 BP 119 / 75; Pulse 79; Resp 18 S; Temp 98.2(O); Pulse Ox 98% on R/A; Weight 85.73 kg ca1 (R); Height 5 ft. 5 in. (165.10 cm) (R); Pain 2/10; 17:34 BP 120 / 76; Pulse 75; Resp 18; Pulse Ox 96% ; tr6 20:00 BP 122 / 68; Pulse 78; Resp 18; Pulse Ox 99% ; ea 16:42 Body Mass Index 31.45 (85.73 kg, 165.10 cm) ca1 ED Course: 16:29 Patient arrived in ED. ds1 16:44 Triage completed. ca1 16:45 Arm band placed on right wrist. ca1 17:28 Vijay Evans PA is PHCP. cp 17:28 Vijay Asif MD is Attending Physician. cp 17:41 No provider procedures requiring assistance completed. Inserted saline lock: 20 gauge tr6 in right antecubital area, using aseptic technique. Blood collected. 17:42 Patient has correct armband on for positive identification. Bed in low position. Call tr6 light in reach. Side rails up X 1. 18:49 CT Abd/Pelvis - IV Contrast Only In Process Unspecified. EDMS 19:34 Olinda Alexander, RN is Primary Nurse. ea 20:07 Ricardo Wolfe MD is Referral Physician. cp 20:12 IV discontinued, intact, bleeding controlled, No redness/swelling at site. Pressure ea dressing applied. Administered Medications: 18:08 Drug: TORadol - (ketorolac) 15 mg Route: IVP; Site: right antecubital; tr6 18:27 Follow up: Response: No adverse reaction; Pain is decreased tr6 18:08 Not Given (Patient Refused): NS 0.9% 1000 ml IV at 1 bolus Per protocol; 1000 mL bolus tr6 18:29 Drug: NS 0.9% 1000 ml Route: IV; Rate: 1 bolus; Site: right antecubital; tr6 Outcome: 20:08 Discharge ordered by MD. cp 20:12 Discharged to home ambulatory, with family. ea 20:12 Condition: stable 20:12 Discharge instructions given to patient, Instructed on discharge instructions, follow up and referral plans. medication usage, Demonstrated understanding of instructions, follow-up care, medications, Prescriptions given X 1. 20:14 Patient left the ED. ea Signatures: Dispatcher [employer] EDMI Gisel Garcia ds1 Vijay Evans PA PA cp Antunez, Elena, Josephine Carlson RN, ea, RN RN ca1 Ramnanan, Tiffany, RN RN tr6
[2020-09-25 20:27] VITALS: TEMP 98.2
[2020-09-25 20:30] VITALS: BP 122/68; O2SAT 99
== END 2020-09-25 20:14 | disposition home or self-care (01) ==
LOC: ER 16:25
DX: R10.9 Unspecified abdominal pain (principal); F17.210 Nicotine dependence, cigarettes, uncomplicated
CPT/HCPCS: 36415; 74177; 80048; 80076; 81003; 81015; 83690; 85025; 96374; 99284; J7030; Q9967

== ENCOUNTER 2024-06-02 23:38 | Emergency (ER) | payer SELFPAY ==
[2024-06-02] MEDS ORDERED: LIDOCAINE 1% MPF 5 ML VIAL ONE (23:41)
[2024-06-02] MEDS ORDERED: BUPIVACAINE 0.5% PF 10 ML VIAL ONE (23:41)
[2024-06-02] MEDS ORDERED: TDAP (DIPHTH,PERTUSS(ACELL),TET VAC) 0.5 ML VIAL IMVAC ONE (23:50)
[2024-06-03] MEDS ORDERED: LIDOCAINE 1% MPF 5 ML VIAL ONE (00:02)
[2024-06-03] MEDS ORDERED: CEFAZOLIN SODIUM 1 GM/VIAL ONE (00:02)
--- NOTE | 2024-06-03 00:55 | ER ---
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 Coronavirus screen: Client denies travel out of the [place] in the last 14 days. Ebola Screen: Patient denies exposure to infectious person. Initial Sepsis Screen: Does the patient meet any 2 criteria? HR > 90 bpm. Does the patient have a suspected source of infection? No. Patient's initial sepsis screen is negative. Risk Assessment: Do you want to hurt yourself or someone else? Patient reports no desire to harm self or others. Onset of symptoms was June 02, 2024 at 23:00. 23:39 Method Of Arrival: Ambulatory br2 23:39 Acuity: [place] 3 br2 Triage Assessment: 23:41 General: Appears uncomfortable, Behavior is cooperative, anxious. Pain: Complains of br2 pain in dorsal aspect of distal phalanx of right middle finger Pain does not radiate. Pain currently is 8 out of 10 on a pain scale. Musculoskeletal: RIGHT 3RD FINGER CRUSHED. Injury Description: Crush injury sustained to dorsal aspect of distal phalanx of right middle finger and right middle fingernail. Historical: - Allergies: 23:41 No Known Allergies; br2 - PMHx: 23:41 Diverticulitis; br2 - Immunization history:: Adult Immunizations not up to date. - Infectious Disease History:: Denies. - Social history:: Smoking status: Reported history of juuling and/or vaping. Screenin:43 [facility] ED Fall Risk Assessment (Adult) History of falling in the last 3 months, br2 including since admission No falls in past 3 months (0 pts) Confusion or Disorientation No (0 pts) Intoxicated or Sedated No (0 pts) Impaired Gait No (0 pts) Mobility Assist Device Used No (0 pt) Altered Elimination No (0 pt) Score/Fall Risk Level 0 - 2 = Low Risk Oriented to surroundings. Abuse screen: Denies threats or abuse. Denies injuries from another. Nutritional screening: No deficits noted. Tuberculosis screening: No symptoms or risk factors identified. Assessment: 23:47 General: Appears in no apparent distress. uncomfortable, Behavior is calm, cooperative. al5 Pain: Complains of pain in right middle fingernail and dorsal aspect of distal phalanx of right middle finger Pain currently is 8 out of 10 on a pain scale. Neuro: Level of Consciousness is awake, alert, obeys commands, Oriented to person, place, time, situation. Cardiovascular: Capillary refill < 3 seconds Patient's skin is warm and dry. Respiratory: Airway is patent Respiratory effort is even, unlabored, Respiratory pattern is regular, symmetrical. GI: No signs and/or symptoms were reported involving the gastrointestinal system. : No signs and/or symptoms were reported regarding the genitourinary system. EENT: No signs and/or symptoms were reported regarding the EENT system. Derm: degloving of the R distal middle digit. Musculoskeletal: Reports pain in right middle fingernail and dorsal aspect of distal phalanx of right middle finger. Vital Signs: 23:39 BP 161 / 102; Pulse 112; Resp 18; Temp 97.2; Pulse Ox 99% on R/A; Weight 88.45 kg; br2 Height 5 ft. 5 in. ; Pain 12/30; 06/03 01:17 BP 152 / 97; Pulse 91; Resp 18; Pulse Ox 100% on R/A; al5 06/02 23:39 Body Mass Index 32.45 (88.45 kg, 165.1 cm) br2 06/02 23:39 Pain Scale: Adult br2 ED Course: 06/02 23:38 Patient arrived in ED. jj6 23:39 Virginie Palma FNP-C [facility]. kb 23:39 Lambert Wright MD is Attending Physician. kb 23:41 Triage completed. br2 23:41 Arm band placed on. br2 23:43 Patient has correct armband on for positive identification. Bed in low position. Call br2 light in reach. Side rails up X 1. Provided Education on: PLAN OF CARE. 23:46 Cait Acuña, RN is Primary Nurse. al5 23:48 Patient did not have IV access during this emergency room visit. al5 06/03 00:00 Hand Right 3 View XRAY In Process Unspecified. EDMS 00:54 Chris Butler MD is Referral Physician. kb 01:14 Assist provider with laceration repair on palmar aspect of distal phalanx of right al5 middle finger and dorsal aspect of distal phalanx of right middle finger using sutures. Set up tray. Performed by Virginie ALCARAZ Dressed with Kerlix, Neosporin, Patient tolerated well. Administered Medications: 06/02 23:46 Drug: Lidocaine Infiltration (1 %) 1 vials 5 ml Infiltration once; to bedside {Note: al5 given by FNP. Virginie} Volume: 5 ml; Route: Infiltration; 23:46 Drug: Bupivacaine Infiltration (0.5 %) 1 vials 10 ml Infiltration once {Note: given by alFNP. Devonte} Volume: 10 ml; Route: Infiltration; 23:53 Drug: Boostrix Tdap IM 0.5 ml IM once; as a single dose Route: IM; Site: left deltoid; al5 06/03 01:14 Follow up: Response: (VIS) Vaccine information sheet provided today. Questions and/or al5 concerns addressed. VIS edition date: Dec 26, 2020.; No adverse reaction 01:13 Drug: CeFAZolin IM 1 grams IM once Route: IM; Site: right ventrogluteal; al5 01:14 Follow up: Response: No adverse reaction; Medication administered at discharge. al5 01:13 Drug: Hydrocodone-Acetaminophen PO (7.5 mg-325 mg) 1 tabs PO once Route: PO; al5 01:14 Follow up: Response: No adverse reaction; Medication administered at discharge. al5 Medication: 01:14 Vaccine Information Statement (VIS) provided today. Questions and/or concerns al5 addressed. VIS edition date: December 26, 2020. Outcome: 00:55 Discharge ordered by . kb 01:17 Discharged to home ambulatory, with family, al5 01:17 Condition: good 01:17 Discharge instructions given to patient, family, Instructed on discharge instructions, follow up and referral plans. medication usage, Demonstrated understanding of instructions, follow-up care, medications, Prescriptions given X 2, 01:18 Patient left the ED. al5 Signatures: Dispatcher [employer] EDUT Cory Palmaistin, ORAL SURGERY ASSISTANT-C ORAL SURGERY ASSISTANT-Ckb Maxine Christensen jj6 Cait Acuña, RN RN al5 Yaa Petersen RN RN br2
--- NOTE | 2024-06-03 00:55 | EDPHYS ---
Physician Documentation [facility] Name: Andrade Herrmann Age: 39 yrs Sex: Male : 1985 Arrival Date: 06/02/2024 Time: 23:38 Bed 4 Private MD: ED Physician Lambert Wright HPI: 06/03 00:55 This 39 yrs old Male presents to ER via Ambulatory with complaints of Finger Injury. kb 00:55 Pt is a 39 year old male who presents for laceration and pain to right middle finger kb after crushing it between a 45 and 60 pound dumbells just seating captain. States he was sitting the 60 pound dumbell down and didn't realize the 45 pound dumbell was below him. Denies any other injury. Historical: - Allergies: 06/02 23:41 No Known Allergies; br2 - PMHx: 23:41 Diverticulitis; br2 - Immunization history:: Adult Immunizations not up to date. - Infectious Disease History:: Denies. - Social history:: Smoking status: Reported history of juuling and/or vaping. ROS: 06/03 00:52 Constitutional: As per HPI kb Exam: 00:52 Constitutional: This is a well developed, well nourished patient who is awake, alert, kb and in no acute distress. Head/Face: Normocephalic, atraumatic. ENT: Moist Mucous membranes Cardiovascular: Regular rate Respiratory: Respirations even and unlabored. No increased work of breathing. Talking in full sentences Neuro: Awake and alert, GCS 15, oriented to person, place, time, and situation. 00:52 Musculoskeletal/extremity: Extremities: grossly normal except: noted in the dorsal aspect of distal phalanx of right middle finger and palmar aspect of distal phalanx of right middle finger: decreased ROM, laceration, pain, tenderness, finger degloved with skin to bottom of finger intact, ROM: limited active range of motion due to pain, Circulation is intact in all extremities. Sensation intact. Vital Signs: 06/02 23:39 BP 161 / 102; Pulse 112; Resp 18; Temp 97.2; Pulse Ox 99% on R/A; Weight 88.45 kg; br2 Height 5 ft. 5 in. ; Pain 8/10; 06/03 01:17 BP 152 / 97; Pulse 91; Resp 18; Pulse Ox 100% on R/A; al5 06/02 23:39 Body Mass Index 32.45 (88.45 kg, 165.1 cm) br2 06/02 23:39 Pain Scale: Adult br2 Laceration: 00:50 Wound Repair of 3cm ( 1.2in ) subcutaneous laceration to dorsal aspect of distal kb phalanx of right middle finger and palmar aspect of distal phalanx of right middle finger. Irregularly shaped.. Skin/tissue flap noted.. Distal neuro/vascular/tendon intact. Anesthesia: Digital block administered with 6 mls of Lido/Marcaine. Wound prep: Extensive cleansing with hibiclenz by me, Wound irrigation with saline by me, Wound margin revised minimally. Skin closed with 15 5-0 Prolene using simple sutures and sterile technique. Patient tolerated well. MDM: 06/02 23:39 Medical Screening Exam initiated kb 06/03 00:50 Differential diagnosis: open fracture, laceration, amputation. Data reviewed: vital kb signs, nurses notes. Test considered but Not performed: X-ray: displaced fracture distal tip of right middle distal phalanx. Historians other than the Patient: Friend: friend. Counseling: I had a detailed discussion with the patient and/or guardian regarding the historical points, exam findings, and any diagnostic results supporting the discharge/admit diagnosis, radiology results, the need for outpatient follow up, a hand specialist, to return to the emergency department if symptoms worsen or persist or if there are any questions or concerns that arise at home. 06/02 23:39 Order name: Hand Right 3 View XRAY; Complete Time: 20:14 kb 06/02 23:49 Order name: Dressing - Wound; Complete Time: 00:00 kb 06/02 23:49 Order name: Gloves, Sterile; Complete Time: 00:00 kb 06/02 23:49 Order name: Prolene, Sutures; Complete Time: 00:00 kb 06/02 23:49 Order name: Setup Suture Tray; Complete Time: 00:00 kb Administered Medications: 06/02 23:46 Drug: Lidocaine Infiltration (1 %) 1 vials 5 ml Infiltration once; to bedside {Note: al5 given by KIKO Rachel.} Volume: 5 ml; Route: Infiltration; 23:46 Drug: Bupivacaine Infiltration (0.5 %) 1 vials 10 ml Infiltration once {Note: given by KIKO Sharma.} Volume: 10 ml; Route: Infiltration; 23:53 Drug: Boostrix Tdap IM 0.5 ml IM once; as a single dose Route: IM; Site: left deltoid; al5 06/03 01:14 Follow up: Response: (VIS) Vaccine information sheet provided today. Questions and/or al5 concerns addressed. VIS edition date: Dec 26, 2020.; No adverse reaction 01:13 Drug: CeFAZolin IM 1 grams IM once Route: IM; Site: right ventrogluteal; al5 01:14 Follow up: Response: No adverse reaction; Medication administered at discharge. al5 01:13 Drug: Hydrocodone-Acetaminophen PO (7.5 mg-325 mg) 1 tabs PO once Route: PO; al5 01:14 Follow up: Response: No adverse reaction; Medication administered at discharge. al5 Disposition Summary: 06/03/24 00:55 Discharge Ordered Condition: Stable kb Diagnosis - Distal Phalanx Fracture - open kb - Laceration without foreign body of right middle finger without damage to nail kb Followup: ec2 - With: Chris Butler MD - When: - Reason: Recheck today's complaints Discharge Instructions: - Laceration Care, Adult, [id number] kb - Discharge Summary Sheet ec2 - Finger Fracture, Adult, [id number] ec2 Forms: - Medication Reconciliation Form kb - Antibiotic Education kb - Prescription Opioid Use kb - Patient Portal Instructions kb - Leadership Thank You Letter kb Prescriptions: - acetaminophen-codeine 300-30 mg Oral tablet - take 1 tablet ORAL route every 6 hours; 15 tablet; Refills: 0, Product ec2 Selection Permitted - Augmentin 875-125 mg Oral Tablet - take 1 tablet ORAL route every 12 hours for 10 days; 20 tablet; Refills: 0, ec2 Product Selection Permitted Addendum: 06/04/2024 20:14 I agree with the assessment and plan of care. e c2 Signatures: Dispatcher [employer] Virginie Real FNP-C FNP-Ckb Corral, Edwin, MD MD ec2 Cait Acuña RN RN al5 Yaa Petersen RN RN br2 Corrections: (The following items were deleted from the chart) 06/03 00:54 00:52 Musculoskeletal/extremity: Extremities: grossly normal except: noted in the kb dorsal aspect of distal phalanx of right middle finger and palmar aspect of distal phalanx of right middle finger: decreased ROM, laceration, pain, tenderness, ROM: limited active range of motion due to pain, Circulation is intact in all extremities. Sensation intact. kb
[2024-06-03] MEDS ORDERED: HYDROCODONE/APAP 7.5/325 MG TAB ONE (01:09)
--- NOTE | 2024-06-03 01:20 | RAD REPORT ---
EXAM: XR Right Hand Complete, 3 or More Views CLINICAL HISTORY: PAIN TECHNIQUE: Frontal, lateral and oblique views of the right hand. COMPARISON: No relevant prior studies available. FINDINGS: Bones/joints: Displaced, minimally comminuted third distal phalangeal tuft fracture. No dislocati on. Soft tissues: Soft tissue injury at the distal aspect of the third finger. No radiopaque foreign body. IMPRESSION: Third distal phalangeal tuft fracture. Electronically signed by: Wally Deluna MD 06/03/2024 01:12 AM [facility] Due to temporary technical issues with the PACS/SOS Online Backup reporting system, reports are being jia d by the in-house radiologist without review as a courtesy to ensure prompt reporting the interpreting radiologist is fully responsible for the content of the report. Transcribed Date/Time: 06/03/2024 2:04 AM
[2024-06-05 15:46] VITALS: BP 152/97; TEMP 97.2; O2SAT 100
== END 2024-06-03 01:18 | disposition home or self-care (01) ==
LOC: ER 23:38
PROC: 0JQJ3ZZ Repair Right Hand Subcutaneous Tissue and Fascia, Percutaneous Approach (ICD-10-PCS; principal; 2024-06-02)
DX: S62.632A Displaced fracture of distal phalanx of right middle finger, initial encounter for closed fracture (principal); S61.212A Laceration without foreign body of right middle finger without damage to nail, initial encounter; W23.0XXA Caught, crushed, jammed, or pinched between moving objects, initial encounter; Y93.B3 Activity, free weights; Y92.39 Other specified sports and athletic area as the place of occurrence of the external cause; Z87.891 Personal history of nicotine dependence
CPT/HCPCS: 12042; 96372; 99284; J0690; J2003